=== PATIENT | female | born 1980 | race Caucasian/White ===

== ENCOUNTER 2016-11-05 22:49 | Emergency (ER) | payer OTHER ==
[2016-11-05 23:09] VITALS: BP 116/72; PULSE 89; RESP 16; TEMP 98.1; O2SAT 99
[2016-11-05] MEDS ORDERED: Bacitracin 500 Units/gm Oint Foilpak UD TOP ONE (23:25)
[2016-11-05] MEDS ORDERED: Bacitracin 500 Units/gm Oint Foilpak UD ONE (23:31)
--- NOTE | 2016-11-05 23:44 | C.PDOC ---
History Of Present Illness 36 year old female presents to ED with complaints of redness and itching to her arms and legs after spending time in the sun. Patient was in [facility] for few days returned 2 days ago. Patient reports sensitive skin and used new sunblock lotion and reports after an hour in the sun noticed the redness. She states she took claritin with no relief. She noticed blister to right leg yesterday and popped it with clear drainage. Time Seen by Provider: 11/05/16 23:17 Chief Complaint (Nursing): Abnormal Skin Integrity History Per: Patient History/Exam Limitations: no limitations Onset/Duration Of Symptoms: Days Current Symptoms Are (Timing): Still Present Location Of Injury: Right: Arm, Leg, Left: Arm, Leg Quality Of Symptoms: Painful, Itching, Draining Past Medical History Reviewed: Historical Data, Nursing Documentation, Vital Signs Vital Signs: Last Vital Signs Temp 98.1 F 11/05/16 23:04 Pulse 89 11/05/16 23:04 Resp 16 11/05/16 23:04 BP 116/72 11/05/16 23:04 Pulse Ox 99 11/05/16 23:49 - Medical History PMH: Asthma Surgical History: Other Surgeries: tubal ligation Family History: States: Unknown Family Hx - Social History Hx Alcohol Use: Yes Hx Substance Use: No - Immunization History Hx Tetanus Toxoid Vaccination: No Hx Influenza Vaccination: No Hx Pneumococcal Vaccination: No Review Of Systems Except As Marked, All Systems Reviewed And Found Negative. Skin: Positive for: Other (sunburn) Neurological: Negative for: Weakness, Numbness, Headache, Dizziness Physical Exam - Physical Exam Appears: Non-toxic Skin: Other (bright blanching erythema to distal arms and legs. Right anterior leg with small blister and weeping clear drainage) Head: Atraumatic, Normacephalic Eye(s): bilateral: Normal Inspection Nose: Normal Oral Mucosa: Moist Neck: Normal ROM Chest: Symmetrical Extremity: Normal ROM, No Calf Tenderness, Swelling (right anterior leg with sunburn) Neurological/Psych: Oriented x3, Normal Speech Gait: Steady ED Course And Treatment O2 Sat by Pulse Oximetry: 99 Medical Decision Making Medical Decision Makin36 year old female with sunburn to extremities and second degree burn to lower leg. Advise patient on sunscreen and to avoid long exposure in sun. Will prescribe meds and recommend OTC meds. Disposition Counseled Patient/Family Regarding: Diagnosis, Need For Followup, Rx Given - Disposition Referrals: Guy Bullard MD [Staff Provider] - Disposition: HOME/ ROUTINE Disposition Time: 23:44 Condition: STABLE Additional Instructions: Please take Benadryl every 4-6 hours as needed for itching Try to avoid any more sun exposure until area heals, or wear protective clothing Take antibiotic as prescribed. May apply cortisone cream to areas of swelling. Try aloe vera for soothing and cooling Follow up with your primary medical doctor or clinic in 2-5 days for further evaluation. Prescriptions: Cephalexin [cephalexin] 500 mg PO Q12 #10 cap Hydrocortisone [Cortisone + Cooling Relief] 28 gm TP BID #1 gel..gram. 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
== END 2016-11-06 00:09 | disposition home or self-care (01) ==
LOC: C.ER 22:49
DX: L55.1 Sunburn of second degree (principal)